=== PATIENT | female | born 1970 | race Caucasian/White ===

== ENCOUNTER 2016-05-20 21:15 | Emergency (ER) | payer BC ==
[2016-05-20] MEDS ORDERED: OPTIRAY 350 100 ML VIAL HMH IV ONE (21:16)
[2016-05-20] MEDS ORDERED: ONDANSETRON 4 MG VIAL ONE (22:40)
[2016-05-20] MEDS ORDERED: KETOROLAC 30 MG/ML VIAL ONE (22:40)
[2016-05-21] MEDS ORDERED: DICYCLOMINE 20MG/2ML VIAL IM ONE (01:22)
== END 2016-05-21 02:10 | disposition home or self-care (01) ==
LOC: ER 21:15
DX: R10.11 Right upper quadrant pain (principal); R10.31 Right lower quadrant pain; N83.201 Unspecified ovarian cyst, right side
CPT/HCPCS: 36415; 74177; 80053; 81003; 82947; 83690; 84703; 85025; 96372; 96374; 96375